=== PATIENT | female | born 1985 | race Two or more races ===

== ENCOUNTER 2016-09-01 04:50 | Emergency (ER) | payer MEDICAID, OTHER ==
[~2016-09-01] VITALS: Ht 162.6 cm; Wt 99.8 kg
[2016-09-01] MEDS ORDERED: IOHEXOL 300 MG/ML 100ML BOTTLE IJ ONE (05:33)
[2016-09-01 06:47] LABS: Basophils # (auto) 0 uL; Basophils % (auto) 0.2 % (0.0-2.0); Eosinophils # (auto) 0.1 uL; Eosinophils % (auto) 0.4 % (0.0-7.0); Hematocrit 44.5 % (36.0-46.0); Lymphocytes # (auto) 1.6 uL; Lymphocytes % (auto) 9.9 % (10.0-50.0); Mean Corpuscular Hemoglobin 30.1 pg (28.0-32.0); Mean Corpuscular Hgb Conc. 33.7 g/dL (32.0-36.0); Mean Corpuscular Volume 89.3 fL (80.0-100.0); Monocytes # (auto) 0.7 uL; Monocytes % (auto) 4.5 % (0.0-12.0); Neutrophils # (auto) 14.1 uL; Platelet Count (auto) 266 10^3/uL (140-450); Red Cell Distribution Width 13.4 % (11.6-16.0); White Blood Cell 16.5 10^3/uL (4.4-10.8)
[2016-09-01 07:02] LABS: INR 1.04 (0.9-1.15); Partial Thromboplastin Time 25.4 sec (22.64-33.71); Prothrombin Time 10.7 sec (9.37-12.3)
[2016-09-01 07:03] LABS: Albumin 3.4 g/dL (3.4-5.0); BUN/Creatinine Ratio 18.3; Bilirubin, Total 0.4 mg/dL (0.2-1.0); Calcium 8.2 mg/dL (8.5-10.1); Potassium 3.7 mmol/L (3.5-5.1); Total Protein 7.5 g/dL (6.4-8.2)
[2016-09-01 07:27] VITALS: BP 135/74
[2016-09-01] MEDS ORDERED: TETANUS-DIPTH-ACEL PERTUSSIS 0.5ML SYRG IM ONE (08:00)
[2016-09-01] MEDS ORDERED: PROMETHAZINE HCL 25 MG/ML 1ML IV ONE (08:15)
[2016-09-01] MEDS ORDERED: KETOROLAC TROMETH 30 MG/ML 1ML VIAL IV ONE (08:15)
== END 2016-09-01 12:09 | disposition home or self-care (01) ==
LOC: EDBD 04:50 → ER 04:53
DX: S00.03XA Contusion of scalp, initial encounter (principal); S06.0X9A Concussion with loss of consciousness of unspecified duration, initial encounter; R41.2 Retrograde amnesia; Z23 Encounter for immunization; M62.838 Other muscle spasm; S50.12XA Contusion of left forearm, initial encounter; S80.02XA Contusion of left knee, initial encounter; M54.2 Cervicalgia; V49.9XXA Car occupant (driver) (passenger) injured in unspecified traffic accident, initial encounter; Y93.89 Activity, other specified; Y99.8 Other external cause status; Y92.89 Other specified places as the place of occurrence of the external cause
CPT/HCPCS: 36415; 70450; 71260; 72125; 73090; 73590; 74177; 80053; 82962; 85025; 85610; 85730; 90471; 90715; 96374; 96375; 99285; J1885; J2550; Q9967